=== PATIENT | male | born 1995 | race Hispanic/Latino ===

== ENCOUNTER 2017-01-06 13:17 | Emergency (ER) | payer OTHER ==
[~2017-01-06] VITALS: Ht 165.1 cm; Wt 63.6 kg
[2017-01-06] MEDS ORDERED: METOCLOPRAMIDE 10 MG/2 ML (REGLAN) VIAL IV ONE (13:25)
[2017-01-06] MEDS ORDERED: DEXAMETHASONE 4 MG/ML (DECADRON) 5ml VIAL IV ONE (13:25)
[2017-01-06] MEDS ORDERED: diphenhydrAMINE 50 MG/ML INJ (BENADRYL) IV ONE (13:25)
[2017-01-06] MEDS: KETOROLAC 30 MG/ML (TORADOL) 1 ML VIAL IV ONE ×2 (13:44→13:49)
[2017-01-06 13:45] LABS: BASOPHILS % (AUTO) 0 % (0-2); EOSINOPHILS % (AUTO) 0 % (0-4); LYMPHOCYTES # (AUTO) 0.7 X10^3; MEAN CORPUSCULAR HEMOGLOBIN 30.4 PG (26.0-34.0); MEAN CORPUSCULAR VOLUME 84 FL (80-100); MEAN PLATELET VOLUME 9.7 FL (6.0-9.5); MONOCYTES # (AUTO) 0.3 X10^3; MONOCYTES % (AUTO) 5 % (3-11); NEUTROPHILS # (AUTO) 5.5 X10^3; NEUTROPHILS % (AUTO) 84 % (51-67); PLATELET COUNT 268 10^3uL (150-450)
[2017-01-06 13:48] LABS: MEAN CORPUSCULAR HGB CONC 36.2 g/dL (31.0-37.0)
[2017-01-06 13:52] LABS: ALBUMIN 4.7 g/dL (3.4-5.0); ANION GAP 15.3 MEQ/L (3-15)
--- NOTE | 2017-01-06 14:31 | NUR ---
pt sleeping on lt side with iv infusing without difficulty. cl
[2017-01-06 16:02] LABS: BILIRUBIN,URINE Negative (Negative); CLARITY,URINE Clear; COLOR,URINE Yellow; GLUCOSE, URINE (UA) Negative (Negative); LEUKOCYTE ESTERASE ,URINE Negative (Negative); PH,URINE 7.5 (5.0 - 8.0); UROBILINOGEN,URINE 0.2 mg/dL (0.2-1.0)
[2017-01-06 16:13] LABS: AMPHETAMINE SCREEN, URINE Negative (Negative); CANNABINOID SCREEN, URINE Negative (Negative); METHAMPHETAMINE SCREEN URINE S NEGATIVE (NEGATIVE); OPIATE SCREEN URINE Negative (Negative); URINE CENTRIFUGED VOLUME 12 mL
[2017-01-06 16:14] LABS: PROPOXYPHENE STAT NEGATIVE (NEGATIVE)
[2017-01-06 18:18] VITALS: BP 113/48
== END 2017-01-06 16:34 | disposition home or self-care (01) ==
LOC: ED 13:21
DX: G43.909 Migraine, unspecified, not intractable, without status migrainosus (principal)
CPT/HCPCS: 36415; 80053; 80307; 81003; 81015; 83690; 85025; 96361; 96374; 96375; 99283; J1100; J1200; J1885; J2765; J7030; 99282

== ENCOUNTER → 2017-01-06 | Outpatient (CLI) | payer OTHER | LOC: EMS 13:00 | PROVIDERS: ATTEND Emergency Medicine | DX: R07.89 Other chest pain (principal); R11.2 Nausea with vomiting, unspecified; R51 Headache ==